=== PATIENT | male | born 1970 | race Caucasian/White ===

== ENCOUNTER 2021-11-19 14:19 | Emergency (ER) | payer OTHER, BC ==
[2021-11-19] MEDS ORDERED: Diphtheria,Pertussis(Acell),Tetanus Vaccine 0.5 ML Syringe IM ONE (14:28)
[2021-11-19] MEDS ORDERED: Acetaminophen 500 MG Tab PO ONE (14:29)
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
== END 2021-11-19 15:39 | disposition home or self-care (01) ==
LOC: VM.ED 14:19
DX: S01.01XA Laceration without foreign body of scalp, initial encounter (principal); S79.922A Unspecified injury of left thigh, initial encounter; Z23 Encounter for immunization; V48.5XXA Car driver injured in noncollision transport accident in traffic accident, initial encounter
CPT/HCPCS: 12001; 70450; 72125; 90471; 90715; 99284; A9270